=== PATIENT | male | born 1995 | race Caucasian/White ===

== ENCOUNTER 2017-04-12 14:09 | Emergency (ER) | payer OTHER ==
[~2017-04-12] VITALS: Ht 182.9 cm; Wt 148.3 kg
[2017-04-12 17:24] LABS: BASOPHIL % 0.6 % (0-2); PLATELET COUNT 179 x10^3mcL (130-400)
[2017-04-12 17:30] LABS: CALCIUM 9.4 mg/dL (8.5-10.1); CARBON DIOXIDE 25.9 mmol/L (21-32); CHLORIDE SERUM 104 mmol/L (98-107); CREATININE SERUM 0.8 mg/dL (0.7-1.3); GFR1 > 60 mL/min; GLUCOSE SERUM 93 mg/dL (74-106); POTASSIUM SERUM 3.7 mmol/L (3.5-5.1); SODIUM SERUM 140 mmol/L (136-145)
[2017-04-12 17:34] LABS: ALBUMIN 4.3 g/dL (3.4-5.0); ALKALINE PHOSPHATASE 84 U/L (46-116); ALT/SGPT 39 U/L (16-63); AST/SGOT 25 U/L (15-37); BILIRUBIN TOTAL 0.59 mg/dL (0.20-1.00); TOTAL PROTEIN, SERUM 8.2 g/dL (6.4-8.2); URIC ACID 5.3 mg/dL (3.5-7.2)
[2017-04-12 17:44] LABS: RED CELL DISTRIBUTION WIDTH 15.5 % (11.5-14.5)
[2017-04-12 19:01] VITALS: BP 145/93
== END 2017-04-12 19:01 | disposition home or self-care (01) ==
LOC: ED 14:09
PROVIDERS: Emergency Medicine
DX: N20.0 Calculus of kidney (principal); F17.200 Nicotine dependence, unspecified, uncomplicated; Z71.6 Tobacco abuse counseling
CPT/HCPCS: 99406; J2270; J2405

== ENCOUNTER 2019-03-01 08:43 | Emergency (ER) | payer OTHER ==
[~2019-03-01] VITALS: Ht 182.9 cm; Wt 153.3 kg
[2019-03-01 08:59] VITALS: Ht 182.9 cm; Wt 153.3 kg
[2019-03-01 10:56] VITALS: BP 135/70
== END 2019-03-01 10:56 | disposition home or self-care (01) ==
LOC: ED 08:43
DX: K64.9 Unspecified hemorrhoids (principal)

== ENCOUNTER 2020-10-13 17:38 | Emergency (ER) | payer MEDICAID ==
[~2020-10-13] VITALS: Ht 182.9 cm; Wt 155.1 kg
[2020-10-13 17:49] VITALS: BP 139/69; Ht 182.9 cm; Wt 155.1 kg
== END 2020-10-13 21:54 | disposition home or self-care (01) ==
LOC: ED 17:38
DX: M54.5 Low back pain (principal); E66.9 Obesity, unspecified